=== PATIENT | female | born 1945 | race Caucasian/White ===

== ENCOUNTER 2019-12-20 13:54 | Outpatient (CLI) | payer MEDICARE ==
[2019-12-20] MEDS ORDERED: LETR2.5T3 PO (14:36)
[2019-12-20] MEDS ORDERED: CHOL10003 PO (14:36)
[2019-12-20] MEDS ORDERED: [UNRECOGNIZED DRUG - REMARK] (14:36)
[2019-12-20] MEDS ORDERED: THYR32.54 PO (14:36)
[2019-12-20] MEDS ORDERED: ONCOPLEX PO (14:36)
[2019-12-20] MEDS ORDERED: OMEG-130 PO (14:36)
[2019-12-20 15:41] LABS: BASOPHILS # (AUTO) 0.02 x10^3/uL (0-0.1); BASOPHILS % (AUTO) 0 % (0-1); EOSINOPHILS # (AUTO) 0.03 x10^3/uL (0-0.4); EOSINOPHILS % (AUTO) 1 % (1-7); LYMPHOCYTES # (AUTO) 1.56 x10^3/uL (1-3.4); LYMPHOCYTES % (AUTO) 24 % (22-44); MD NO; MEAN CORPUSCULAR HEMOGLOBIN 32.3 pg (27.0-34.8); MEAN CORPUSCULAR HGB CONC 34.3 g/dL (32.4-35.8); MEAN CORPUSCULAR VOLUME 94.2 fL (80-100); MEAN PLATELET VOLUME 8.5 fL (7.4-10.4); MONOCYTES # (AUTO) 0.38 x10^3/uL (0.2-0.8); MONOCYTES % (AUTO) 6 % (2-9); NEUTROPHILS # (AUTO) 4.54 x10^3/uL (1.8-6.8); NEUTROPHILS % (AUTO) 70 % (42-75); PLATELET COUNT 320 x10^3/uL (130-400); RED CELL DISTRIBUTION WIDTH 13.2 % (9.6-15.2)
[2019-12-20 15:47] LABS: ALANINE AMINOTRANSFERASE 20 U/L (12-78); ALBUMIN 3.2 g/dL (3.4-5.0); ANION GAP 6 mmol/L (5-15); CALCIUM 9.3 mg/dL (8.5-10.1); CHLORIDE 109 mmol/L (98-107)
[2019-12-20 15:49] LABS: INTERNATIONAL NORMALIZED RATIO 0.93 (0.93-1.1); PROTHROMBIN TIME 9.9 Seconds (9.6-11.5)
[2019-12-20 15:50] LABS: ALKALINE PHOSPHATASE 87 U/L (45-117); BILIRUBIN,TOTAL 0.6 mg/dL (0.2-1.0); TOTAL PROTEIN 7.5 g/dL (6.4-8.2)
== END 2019-12-20 23:59 | disposition home or self-care (01) ==
LOC: STAR 13:54
PROVIDERS: ATTEND Specialist
DX: Z01.818 Encounter for other preprocedural examination (principal); C50.411 Malignant neoplasm of upper-outer quadrant of right female breast; R92.8 Other abnormal and inconclusive findings on diagnostic imaging of breast; Z15.09 Genetic susceptibility to other malignant neoplasm
CPT/HCPCS: 36415; 71046; 80053; 85025; 85610; 85730; 86304; 93005

== ENCOUNTER 2019-12-25 05:51 | Day surgery (SDC) | payer MEDICARE ==
[~2019-12-25] VITALS: Ht 160 cm; Wt 60.8 kg
[~2019-12-25 05:51] MED LIST: CHOL10003 PO; LETR2.5T3 PO; OMEG-130 PO; ONCOPLEX PO; THYR32.54 PO; [UNRECOGNIZED DRUG - REMARK]
[2019-12-25] MEDS ORDERED: CEFOTETAN PMX 2GM/50ML 50 ML IV STA (06:07)
[2019-12-25] MEDS ORDERED: LACTATED RINGERS 1,000 ML IV SCH (06:07)
[2019-12-25 06:25] VITALS: BP 137/66
[2019-12-25] MEDS ORDERED: BUPIVACAINE/PF 0.25% ONE ×2 (06:53→08:06)
[2019-12-25] MEDS ORDERED: EPINEPHRINE 1 MG/ML, 1ML ONE (06:53)
[2019-12-25] MEDS ORDERED: HEPARIN 1,000 UNITS/ML, 10ML ONE (06:53)
[2019-12-25] MEDS ORDERED: INDOCYANINE GREEN 25 MG VIAL ONE (06:53)
[2019-12-25] MEDS ORDERED: MIDAZOLAM 1 MG/ML, 2ML ONE (07:13)
[2019-12-25] MEDS ORDERED: FENTANYL PF 250 MCG/5ML ONE (07:14)
[2019-12-25] MEDS ORDERED: SCOPOLAMINE 1MG PATCH TD SCH (07:30)
[2019-12-25] MEDS ORDERED: ROCURONIUM 10MG/ML,5ML ONE (07:37)
[2019-12-25] MEDS ORDERED: CEFAZOLIN 1,000 MG ONE (07:37)
[2019-12-25] MEDS ORDERED: SUCCINYLCHOLINE 20 MG/ML, 10ML ONE (07:37)
[2019-12-25] MEDS ORDERED: PROPOFOL 10 MG/ML, 20ML ONE (07:37)
[2019-12-25] MEDS ORDERED: ONDANSETRON 2MG/ML, 2ML ONE (07:37)
[2019-12-25] MEDS ORDERED: DEXAMETHASONE 4 MG/ML, 1ML ONE (07:37)
[2019-12-25] MEDS ORDERED: KETOROLAC 30 MG/1 ML ONE (09:59)
[2019-12-25] MEDS ORDERED: FENTANYL PF 100 MCG/2ML ONE (09:59)
[2019-12-25] MEDS ORDERED: LABETALOL 5MG/ML, 20ML IV PRN (10:00)
[2019-12-25] MEDS ORDERED: MEPERIDINE/PF 25MG/0.5ML IVPush PRN (10:00)
[2019-12-25] MEDS ORDERED: KETOROLAC 30 MG/1 ML IV PRN (10:00)
[2019-12-25] MEDS ORDERED: METOCLOPRAMIDE 5 MG/ML, 2ML IV PRN (10:00)
[2019-12-25] MEDS ORDERED: PROMETHAZINE 25 MG/ML, 1ML IV PRN (10:00)
[2019-12-25] MEDS ORDERED: HYDROmorphone 1 MG/ML, 1ML INJ IV PRN (10:00)
[2019-12-25] MEDS: FENTANYL PF 100 MCG/2ML IV PRN ×2 (10:00→10:09)
[2019-12-25] MEDS ORDERED: OXYcodone 5 MG/5 ML ORAL.SOL UDC PO PRN (10:00)
[2019-12-25] MEDS ORDERED: hydrALAzine 20 MG/ML, 1ML IV PRN (10:00)
[2019-12-25] MEDS ORDERED: ALBUTEROL SULFATE 2.5 MG/3 ML NPPB PRN (10:00)
[2019-12-25] MEDS ORDERED: DIAZEPAM 5 MG/ML, 2ML IV PRN ×2 (10:00)
[2019-12-25] MEDS ORDERED: ONDANSETRON 2MG/ML, 2ML IVPush PRN (10:00)
[2019-12-25] MEDS ORDERED: MEPERIDINE/PF 25MG/ML,1ML ONE (10:10)
[2019-12-25] MEDS ORDERED: OXYcodone 5 MG/5 ML ORAL.SOL UDC ONE (10:10)
== END 2019-12-25 12:35 | disposition home or self-care (01) ==
LOC: OUT 05:51
PROVIDERS: ATTEND Specialist
DX: Z40.09 Encounter for prophylactic removal of other organ (principal); N85.8 Other specified noninflammatory disorders of uterus; N83.8 Other noninflammatory disorders of ovary, fallopian tube and broad ligament; R92.8 Other abnormal and inconclusive findings on diagnostic imaging of breast; E03.9 Hypothyroidism, unspecified; D18.00 Hemangioma unspecified site; Z90.11 Acquired absence of right breast and nipple; Z85.038 Personal history of other malignant neoplasm of large intestine; Z15.01 Genetic susceptibility to malignant neoplasm of breast; Z79.899 Other long term (current) drug therapy; Z85.3 Personal history of malignant neoplasm of breast
CPT/HCPCS: 36415; 58571; 86850; 86900; 86923; 88309; J0171; J0330; J0690; J1100; J1885; J2175; J2250; J2405; J2704; J3010; J3490; J7120; J1644